=== PATIENT | female | born 2005 | race Caucasian/White ===

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

== ENCOUNTER 2023-06-24 21:29 | Outpatient (CLI) | payer BC, SELFPAY ==
[2023-06-24 16:45] LABS: Abs Immature Grans 0.01 10^3/uL (0.0-0.06); Absolute Basophil Count 0.07 10^3/uL (0.0-0.2); Absolute Lymphocyte Count 2.43 10^3/uL (1.2-3.4); Absolute Monocyte Count 0.78 10^3/uL (0.1-0.8); Absolute Neutrophil Count 3.05 10^3/uL (1.2-6.7); Basophils % 1.1 %; Eosinophils % 4.5 %; HCT 39.4 % (36.0-46.0); HGB 12.5 g/dL (11.2-15.7); Immature Grans % 0.2 %; Lymphocytes % 36.6 %; MCH 26.4 pg (27.0-33.0); MCHC 31.7 % (32.0-36.0); MCV 83 fL (80-95); MPV 9.3 fL (8.0-11.0); Monocytes % 11.7 %; Neutrophils % 45.9 %; Platelet Count 261 10^3/uL (130-400); RBC 4.74 10^6/uL (3.93-5.22); RDW 12.7 % (11.7-14.6); RDW-SD 38.5 fL; WBC 6.64 10^3/uL (4.4-10.8)
[2023-06-24 16:47] LABS: ESR 3 mm/hr (0-20)
[2023-06-24 17:40] LABS: ALT 24 U/L (14-59); AST 18 U/L (15-37); Alkaline Phosphatase 80 U/L (46-116); Anion Gap 7.3 mmol/L (3-11); BUN 10 mg/dL (7-18); Bilirubin, Total 0.3 mg/dL (0.2-1.0); CO2 28.7 mmol/L (21.0-32.0); CREATININE 0.7 mg/dL (0.55-1.02); Calcium 8.8 mg/dL (8.5-10.1); Chloride 104 mmol/L (98-107); Estimated GFR 127.69 (mL/min/1.73m2); Glucose 90 mg/dL (74-106); Potassium 4.1 mmol/L (3.5-5.1); Sodium 140 mmol/L (136-145); Total Protein 7.3 g/dL (6.4-8.2)
[2023-06-24 17:43] LABS: C-Reactive Protein < 0.50 mg/dL (<or=0.5)
== END 2023-06-24 21:30 | disposition home or self-care (01) ==
LOC: LBO 21:29
PROVIDERS: PCP Student in an Organized Health Care Education/Training Program; Visit Provider Internal Medicine Rheumatology
DX: M06.0A Rheumatoid arthritis without rheumatoid factor, other specified site (principal)
CPT/HCPCS: 36415; 80053; 85652; 85025; 86140

== ENCOUNTER 2024-01-20 02:20 | Outpatient (CLI) | payer BC, SELFPAY ==
[2024-01-20 16:22] LABS: Abs Immature Grans 0.02 10^3/uL (0.0-0.06); Absolute Basophil Count 0.07 10^3/uL (0.0-0.2); Absolute Eosinophil Count 0.15 10^3/uL (0.0-0.7); Absolute Lymphocyte Count 2.17 10^3/uL (1.2-3.4); Absolute Monocyte Count 0.75 10^3/uL (0.1-0.8); Absolute Neutrophil Count 5.89 10^3/uL (1.2-6.7); Basophils % 0.8 %; Eosinophils % 1.7 %; HCT 40.3 % (36.0-46.0); HGB 12.9 g/dL (11.2-15.7); Immature Grans % 0.2 %; MCH 26.8 pg (27.0-33.0); MCV 84 fL (80-95); MPV 9.2 fL (8.0-11.0); Monocytes % 8.3 %; Platelet Count 314 10^3/uL (130-400); RBC 4.81 10^6/uL (3.93-5.22); RDW 13.4 % (11.7-14.6); RDW-SD 41.1 fL; WBC 9.05 10^3/uL (4.4-10.8)
[2024-01-20 16:27] LABS: ESR 3 mm/hr (0-20)
[2024-01-20 17:42] LABS: ALT 16 U/L (14-59); AST 17 U/L (15-37); Albumin 4.3 g/dL (3.4-5.0); Alkaline Phosphatase 89 U/L (46-116); Anion Gap 8.9 mmol/L (3-11); BUN 10 mg/dL (7-18); Bilirubin, Total 0.31 mg/dL (0.2-1.0); C-Reactive Protein < 0.50 mg/dL (<or=0.5); CO2 27.1 mmol/L (21.0-32.0); CREATININE 0.8 mg/dL (0.55-1.02); Calcium 8.9 mg/dL (8.5-10.1); Chloride 104 mmol/L (98-107); Estimated GFR 108.11 (mL/min/1.73m2); Glucose 92 mg/dL (74-106); Potassium 4.4 mmol/L (3.5-5.1); Sodium 140 mmol/L (136-145); Total Protein 7.5 g/dL (6.4-8.2)
[2024-01-20 18:13] LABS: Ferritin 14 ng/mL (8-252)
== END 2024-01-20 02:21 | disposition home or self-care (01) ==
LOC: LBO 02:21
PROVIDERS: PCP Nurse Practitioner Pediatrics; Visit Provider Nurse Practitioner Pediatrics
DX: M05.79 Rheumatoid arthritis with rheumatoid factor of multiple sites without organ or systems involvement (principal); N92.0 Excessive and frequent menstruation with regular cycle
CPT/HCPCS: 36415; 80053; 85652; 82728; 85025; 86140